=== PATIENT | male | born 1950 | race Caucasian/White ===

== ENCOUNTER 2017-05-12 12:13 | Emergency (ER) | payer MEDICARE, OTHER ==
[~2017-05-12] VITALS: Ht 175.3 cm; Wt 90.7 kg
[~2017-05-12 12:13] MED LIST: ASCO500 PO; BENZ2 PO; HALO5 PO; Seroquel100 MG PO
[2018-05-17] MEDS ORDERED: ARIP10 PO (09:14)
== END 2017-05-12 13:18 | disposition home or self-care (01) ==
LOC: ER 12:13
DX: S63.501A Unspecified sprain of right wrist, initial encounter (principal); Y04.0XXA Assault by unarmed brawl or fight, initial encounter; Z87.891 Personal history of nicotine dependence
CPT/HCPCS: 29125; 73110; 99283

== ENCOUNTER 2017-06-12 10:54 | Emergency (ER) | payer MEDICARE ==
[~2017-06-12] VITALS: Ht 175.3 cm; Wt 90.7 kg
[2017-06-12] MEDS ORDERED: Haldol 5 mg Tab5 MG PO ×2 (11:02→11:30)
[2018-05-17] MEDS ORDERED: ARIP10 PO (09:14)
== END 2017-06-12 11:40 | disposition home or self-care (01) ==
LOC: ER 10:54
DX: S00.03XA Contusion of scalp, initial encounter (principal); S00.81XA Abrasion of other part of head, initial encounter; S80.211A Abrasion, right knee, initial encounter; S60.511A Abrasion of right hand, initial encounter; W01.10XA Fall on same level from slipping, tripping and stumbling with subsequent striking against unspecified object, initial encounter; Z79.899 Other long term (current) drug therapy; Z87.891 Personal history of nicotine dependence
CPT/HCPCS: 99283

== ENCOUNTER 2018-06-16 11:06 | Emergency (ER) | payer MEDICARE, OTHER ==
[~2018-06-16] VITALS: Ht 175.3 cm; Wt 79.4 kg
[~2018-06-16 11:06] MED LIST changes: +ARIP10 PO; +Haldol 5 mg Tab5 MG PO
== END 2018-06-16 11:52 | disposition home or self-care (01) ==
LOC: ER 11:06
DX: S51.811D Laceration without foreign body of right forearm, subsequent encounter (principal); S51.812D Laceration without foreign body of left forearm, subsequent encounter; Z79.899 Other long term (current) drug therapy; F31.9 Bipolar disorder, unspecified; F43.10 Post-traumatic stress disorder, unspecified; Z87.891 Personal history of nicotine dependence

== ENCOUNTER → 2022-01-09 | Outpatient (CLI) | payer OTHER ==
[2022-01-09 17:14] LABS: BASOPHILS ABSOLUTE AUTO 0.05 K/mm3 (0.00-0.23); BASOPHILS PERCENT AUTO 1 % (0-2); EOSINOPHILS ABSOLUTE AUTO 0.13 K/mm3 (0.00-0.68); EOSINOPHILS PERCENT AUTO 2 % (0-6); Hematocrit 43.6 % (37.0-53.0); Hemoglobin 15.4 g/dL (13.5-17.5); IMMATURE GRAN ABSOLUTE AUTO 0.05 K/mm3 (0.00-0.10); IMMATURE GRAN PERCENT AUTO 1 % (0-1); LYMPHOCYTES ABSOLUTE AUTO 1.36 K/mm3 (0.84-5.20); LYMPHOCYTES PERCENT AUTO 24 % (21-46); MONOCYTES ABSOLUTE AUTO 0.58 K/mm3 (0.16-1.47); MONOCYTES PERCENT AUTO 10 % (4-13); Mean Corpuscular HGB Conc 35.3 g/dL (31.5-36.5); Mean Corpuscular Volume 88 fL (80-100); NEUTROPHILS PERCENT AUTO 61 % (41-73); Platelet Count 252 K/mm3 (150-400); RDW Coefficient Variation 12.8 % (11.7-14.2); Red Blood Cell Count 4.97 M/mm3 (4.30-5.90); White Blood Cell Count 5.57 K/mm3 (4.00-11.30)
[2022-01-09 18:32] LABS: Alanine Aminotransfer (ALT/SGP 24 U/L (12-78); Albumin, Blood 3.7 g/dL (3.4-5.0); Albumin/Globulin Ratio 0.9 (0.8-1.8); Alk Phos 76 U/L (50-136); Anion Gap 4 mmol/L (6-16); Aspartate Aminotrans (AST/SGOT 14 U/L (12-37); Bilirubin, Total 0.6 mg/dL (0.1-1.0); Blood Urea Nitrogen 11 mg/dL (8-24); Bun/Creatinine Ratio 13.1 (12.0-20.0); CHOL/HDL RATIO 5.2; CO2, Blood 25 mmol/L (21-32); Calcium, Blood 9.3 mg/dL (8.5-10.1); Chloride, Blood 108 mmol/L (98-108); Cholesterol 227 mg/dL (50-200); Creatinine, Blood 0.84 mg/dL (0.60-1.20); Globulin, Blood 3.9 g/dL (2.2-4.0); Glomerular Filtration Rate 94 (60-); Glucose, Blood 106 mg/dL (70-99); HDL Cholesterol 44 mg/dL (>39); LDL/HDL RATIO 3.5; Low Density Lipoprotein Chol 155 mg/dL (0-110); Potassium, Blood 4.3 mmol/L (3.5-5.5); Prostate Specific Antigen 0.854 ng/mL (0.000-4.000); Sodium, Blood 137 mmol/L (136-145); Total Protein, Blood 7.6 g/dL (6.4-8.2); Triglycerides 138 mg/dL (30-160); Very Low Density Lipoprot Chol 27 mg/dL (6-32)
== END | disposition home or self-care (01) ==
LOC: LAB SHORT 11:20 → LAB 11:20
PROVIDERS: Family Medicine
DX: Z00.00 Encounter for general adult medical examination without abnormal findings (principal); Z12.5 Encounter for screening for malignant neoplasm of prostate; E03.9 Hypothyroidism, unspecified; E66.9 Obesity, unspecified; R73.9 Hyperglycemia, unspecified
CPT/HCPCS: 80053; 80061; 83036; 84443; 85025; G0103

== ENCOUNTER 2024-02-02 13:42 | Emergency (ER) | payer OTHER ==
[~2024-02-02] VITALS: Ht 182.9 cm; Wt 99.8 kg
[2024-02-02] MEDS ORDERED: ARIPiprazole 10 MG Tab PO ONE (14:50)
[2024-02-02 15:11] LABS: BASOPHILS ABSOLUTE AUTO 0.05 K/mm3 (0.00-0.23); BASOPHILS PERCENT AUTO 1 % (0-2); EOSINOPHILS ABSOLUTE AUTO 0.06 K/mm3 (0.00-0.68); EOSINOPHILS PERCENT AUTO 1 % (0-6); Hematocrit 43.7 % (37.0-53.0); Hemoglobin 14.8 g/dL (13.5-17.5); IMMATURE GRAN ABSOLUTE AUTO 0.05 K/mm3 (0.00-0.10); IMMATURE GRAN PERCENT AUTO 1 % (0-1); LYMPHOCYTES ABSOLUTE AUTO 1.29 K/mm3 (0.84-5.20); LYMPHOCYTES PERCENT AUTO 17 % (21-46); MONOCYTES ABSOLUTE AUTO 0.91 K/mm3 (0.16-1.47); MONOCYTES PERCENT AUTO 12 % (4-13); Mean Corpuscular HGB 31.2 pg (26.0-34.0); Mean Corpuscular HGB Conc 33.9 g/dL (31.5-36.5); Mean Corpuscular Volume 92 fL (80-100); Mean Platelet Volume 9.8 fL (9.1-12.4); NEUTROPHILS ABSOLUTE AUTO 5.41 K/mm3 (1.96-9.15); NEUTROPHILS PERCENT AUTO 70 % (41-73); Platelet Count 272 K/mm3 (150-400); RDW Coefficient Variation 12.7 % (11.7-14.2); RDW Standard Deviation 42.5 fL (35.1-46.3); Red Blood Cell Count 4.75 M/mm3 (4.30-5.90); White Blood Cell Count 7.77 K/mm3 (4.00-11.30)
[2024-02-02 15:28] LABS: Albumin, Blood 3.8 g/dL (3.4-5.0); Bilirubin, Total 1.5 mg/dL (0.1-1.0); Bun/Creatinine Ratio 29.2 (12.0-20.0); Calcium, Blood 9.3 mg/dL (8.5-10.1); Creatinine, Blood 0.72 mg/dL (0.60-1.20); Potassium, Blood 3.3 mmol/L (3.5-5.5); Total Protein, Blood 7.8 g/dL (6.4-8.2)
[2024-02-02 16:00] VITALS: BP 124/78
== END 2024-02-02 17:12 | disposition home or self-care (01) ==
LOC: ER 13:42
PROVIDERS: Emergency Medicine
DX: R41.0 Disorientation, unspecified (principal); X02.0XXA Exposure to flames in controlled fire in building or structure, initial encounter; S00.12XA Contusion of left eyelid and periocular area, initial encounter; W19.XXXA Unspecified fall, initial encounter; F31.9 Bipolar disorder, unspecified; Z79.899 Other long term (current) drug therapy; Z87.891 Personal history of nicotine dependence
CPT/HCPCS: 70450; 80053; 85025; 99285-25; A9270

== ENCOUNTER 2024-02-05 15:55 | Emergency (ER) | payer OTHER ==
[~2024-02-05] VITALS: Ht 172.7 cm; Wt 113.4 kg
[2024-02-05 16:03] VITALS: BP 146/82
== END 2024-02-05 18:01 | disposition home or self-care (01) ==
LOC: ER 15:55
DX: T59.811A Toxic effect of smoke, accidental (unintentional), initial encounter (principal); R05.9 Cough, unspecified; Z87.891 Personal history of nicotine dependence; F43.10 Post-traumatic stress disorder, unspecified
CPT/HCPCS: 71045; 93005; 93010; 99285-25

== ENCOUNTER 2024-02-08 09:08 | Emergency (ER) | payer OTHER ==
[~2024-02-08] VITALS: Ht 177.8 cm; Wt 81.7 kg
[2024-02-08 09:47] LABS: BASOPHILS ABSOLUTE AUTO 0.01 K/mm3 (0.00-0.23); BASOPHILS PERCENT AUTO 0 % (0-2); EOSINOPHILS ABSOLUTE AUTO 0.22 K/mm3 (0.00-0.68); EOSINOPHILS PERCENT AUTO 6 % (0-6); Hemoglobin 15.2 g/dL (13.5-17.5); IMMATURE GRAN ABSOLUTE AUTO 0.01 K/mm3 (0.00-0.10); IMMATURE GRAN PERCENT AUTO 0 % (0-1); LYMPHOCYTES ABSOLUTE AUTO 0.93 K/mm3 (0.84-5.20); LYMPHOCYTES PERCENT AUTO 27 % (21-46); MONOCYTES ABSOLUTE AUTO 0.49 K/mm3 (0.16-1.47); MONOCYTES PERCENT AUTO 14 % (4-13); Mean Corpuscular HGB 30.8 pg (26.0-34.0); Mean Corpuscular HGB Conc 34.5 g/dL (31.5-36.5); Mean Corpuscular Volume 89 fL (80-100); Mean Platelet Volume 9.5 fL (9.1-12.4); NEUTROPHILS ABSOLUTE AUTO 1.79 K/mm3 (1.96-9.15); NEUTROPHILS PERCENT AUTO 52 % (41-73); Platelet Count 237 K/mm3 (150-400); RDW Coefficient Variation 12.6 % (11.7-14.2); RDW Standard Deviation 41.1 fL (35.1-46.3); Red Blood Cell Count 4.93 M/mm3 (4.30-5.90); White Blood Cell Count 3.45 K/mm3 (4.00-11.30)
[2024-02-08 09:49] LABS: Source, Urine Clean Catch
[2024-02-08 09:52] LABS: Appearance, Urine Clear (Clear); Bilirubin, Urine Neg (Neg); Blood, Urine Neg (Neg); Color, Urine Yellow (P-Yellow); Glucose Qualitative, Urine Neg (Neg); Ketones, Urine 2+ (Neg); Leukocyte Esterase, Urine Neg (Neg); Nitrite, Urine Neg (Neg); Protein, Urine 2+ (Neg); Specific Gravity, Urine 1.025 (1.003-1.022); Urobilinogen, Urine 2+ (Normal)
[2024-02-08 09:59] LABS: Red Blood Cells, Urine 0-2 /hpf (0-2); White Blood Cells, Urine 0-2 /hpf (0-5)
[2024-02-08 10:00] LABS: Bacteria Few /hpf; Mucus Heavy (0-Heavy); Squamous Epithelial Cells Rare /hpf (Few)
[2024-02-08 10:12] LABS: Alanine Aminotransfer (ALT/SGP 51 U/L (12-78); Albumin, Blood 3.4 g/dL (3.4-5.0); Albumin/Globulin Ratio 0.8 (0.8-1.8); Alk Phos 66 U/L (50-136); Anion Gap 12 mmol/L (3-11); Aspartate Aminotrans (AST/SGOT 34 U/L (12-37); Bilirubin, Total 0.7 mg/dL (0.1-1.0); Blood Urea Nitrogen 20 mg/dL (8-24); Bun/Creatinine Ratio 21.4 (12.0-20.0); CO2, Blood 25 mmol/L (21-32); Calcium, Blood 9.1 mg/dL (8.5-10.1); Chloride, Blood 109 mmol/L (98-108); Creatinine, Blood 0.94 mg/dL (0.60-1.20); Ethanol (Alcohol), Blood, Med <3 mg/dL; Globulin, Blood 4.1 g/dL (2.2-4.0); Glomerular Filtration Rate 86 (60-); Glucose, Blood 105 mg/dL (70-99); Potassium, Blood 3.4 mmol/L (3.5-5.5); Sodium, Blood 143 mmol/L (136-145); Total Protein, Blood 7.5 g/dL (6.4-8.2)
[2024-02-08 10:12] LABS: U Amphetamine Screen Not Detected; U Barbituate Screen Not Detected; U Benzodiazapine Screen Not Detected; U Buprenorphine Screen Not Detected; U Cannabinoids Screen Not Detected; U Cocaine Screen Not Detected; U Methadone Screen Not Detected; U Methamphetamine Screen Not Detected; U Opiates Screen Not Detected; U Oxycodone Screen Not Detected; U Phencyclidine Screen Not Detected
[2024-02-08] MEDS ORDERED: OLANZapine 10 MG Tab PO ONE (10:15)
[2024-02-08 10:32] VITALS: BP 127/79
== END 2024-02-08 10:51 | disposition home or self-care (01) ==
LOC: ER 09:08
PROVIDERS: Emergency Medicine
DX: R46.89 Other symptoms and signs involving appearance and behavior (principal); Z86.59 Personal history of other mental and behavioral disorders; Z87.891 Personal history of nicotine dependence; Z79.899 Other long term (current) drug therapy
CPT/HCPCS: 80053; 80320; 81001; 85025; 99285; A9270

== ENCOUNTER 2024-02-08 11:46 | Emergency (ER) | payer OTHER ==
[~2024-02-08] VITALS: Ht 182.9 cm; Wt 81.7 kg
[2024-02-08 11:55] VITALS: BP 121/73
== END 2024-02-08 11:56 | disposition home or self-care (01) ==
LOC: ER 11:46
DX: Z02.89 Encounter for other administrative examinations (principal); Z79.899 Other long term (current) drug therapy; Z87.891 Personal history of nicotine dependence
CPT/HCPCS: 99282

== ENCOUNTER 2025-04-17 18:46 | Emergency (ER) | payer OTHER ==
[~2025-04-17] VITALS: Ht 188 cm; Wt 72.6 kg
[2025-04-17 18:53] VITALS: BP 131/85
[2025-04-17] MEDS ORDERED: LORazepam 2 MG/ML 1ML Injection IV ONE (19:05)
[2025-04-17 19:09] LABS: BASOPHILS ABSOLUTE AUTO 0.02 K/mm3 (0.00-0.23); BASOPHILS PERCENT AUTO 0 % (0-2); EOSINOPHILS ABSOLUTE AUTO 0.12 K/mm3 (0.00-0.68); EOSINOPHILS PERCENT AUTO 2 % (0-6); Hematocrit 37.4 % (37.0-53.0); Hemoglobin 12.9 g/dL (13.5-17.5); IMMATURE GRAN ABSOLUTE AUTO 0.03 K/mm3 (0.00-0.10); IMMATURE GRAN PERCENT AUTO 0 % (0-1); LYMPHOCYTES ABSOLUTE AUTO 2.33 K/mm3 (0.84-5.20); LYMPHOCYTES PERCENT AUTO 29 % (21-46); MONOCYTES ABSOLUTE AUTO 0.59 K/mm3 (0.16-1.47); MONOCYTES PERCENT AUTO 7 % (4-13); Mean Corpuscular HGB Conc 34.5 g/dL (31.5-36.5); Mean Corpuscular Volume 92 fL (80-100); NEUTROPHILS ABSOLUTE AUTO 4.91 K/mm3 (1.96-9.15); NEUTROPHILS PERCENT AUTO 61 % (41-73); NRBC ABSOLUTE 0.00 K/mm3 (0.00-0.02); NRBC Auto 0.0 /100 WBC (0.0-0.2); Platelet Count 237 K/mm3 (150-400); RDW Coefficient Variation 13.2 % (11.7-14.2); RDW Standard Deviation 44.4 fL (35.1-46.3)
[2025-04-17] MEDS ORDERED: CeFAZolin Sodium 2,000 MG in NS 100 ML IV ONE (19:10)
[2025-04-17] MEDS ORDERED: LORazepam 2 MG/ML 1ML Injection ONE (19:19)
[2025-04-17 19:24] LABS: Prothrombin Time Results 11.4 Sec (9.7-11.5)
[2025-04-17 19:25] LABS: pH Blood Venous 7.43 (7.34-7.37)
[2025-04-17 19:35] LABS: Acetaminophen, Random <2.0 ug/mL (10.0-30.0); Alanine Aminotransfer (ALT/SGP 20 U/L (12-78); Albumin, Blood 3.6 g/dL (3.4-5.0); Albumin/Globulin Ratio 1.1 (0.8-1.8); Anion Gap 6 mmol/L (3-11); Aspartate Aminotrans (AST/SGOT 14 U/L (12-37); Bilirubin, Total 0.6 mg/dL (0.1-1.0); Blood Urea Nitrogen 11 mg/dL (8-24); CO2, Blood 29 mmol/L (21-32); Calcium, Blood 8.8 mg/dL (8.5-10.1); Chloride, Blood 103 mmol/L (98-108); Creatinine, Blood 0.57 mg/dL (0.60-1.20); Ethanol (Alcohol), Blood, Med <3 mg/dL; Globulin, Blood 3.2 g/dL (2.2-4.0); Glucose, Blood 129 mg/dL (70-99); Magnesium, Blood 1.9 mg/dL (1.6-2.4); Potassium, Blood 3.4 mmol/L (3.5-5.5); Salicylate 1.9 mg/dL (2.8-20.0); Sodium, Blood 135 mmol/L (136-145); Total Protein, Blood 6.8 g/dL (6.4-8.2)
[2025-04-17] MEDS ORDERED: levETIRAcetam 2,000 MG in NS 100 ML IV ONE (20:20)
== END 2025-04-17 21:02 | disposition short-term general hospital (02) ==
LOC: ER 18:46
PROVIDERS: Student in an Organized Health Care Education/Training Program
DX: S02.0XXB Fracture of vault of skull, initial encounter for open fracture (principal); S02.19XB Other fracture of base of skull, initial encounter for open fracture; S06.6XAA Traumatic subarachnoid hemorrhage with loss of consciousness status unknown, initial encounter; S06.5XAA Traumatic subdural hemorrhage with loss of consciousness status unknown, initial encounter; S52.251B Displaced comminuted fracture of shaft of ulna, right arm, initial encounter for open fracture type I or II; G93.40 Encephalopathy, unspecified; G89.11 Acute pain due to trauma; Z87.891 Personal history of nicotine dependence; Z79.899 Other long term (current) drug therapy; X58.XXXA Exposure to other specified factors, initial encounter
CPT/HCPCS: 12034; 25605; 70450; 70486; 71045; 72125; 73090; 80053; 80320; 82803; 83735; 85025; 85610; 85730; 86850; 86900; 86901; 90471; 90715; 93005; 93010; 96365-59; 96375-59; 99285-25; G0480; J0690; J1953; J2060

== ENCOUNTER 2025-04-27 09:25 | Emergency (ER) | payer OTHER ==
[~2025-04-27] VITALS: Ht 175.3 cm; Wt 70.3 kg
[2025-04-27 10:38] LABS: BASOPHILS ABSOLUTE AUTO 0.03 K/mm3 (0.00-0.23); BASOPHILS PERCENT AUTO 0 % (0-2); EOSINOPHILS ABSOLUTE AUTO 0.09 K/mm3 (0.00-0.68); EOSINOPHILS PERCENT AUTO 1 % (0-6); Hematocrit 24.9 % (37.0-53.0); Hemoglobin 8.5 g/dL (13.5-17.5); IMMATURE GRAN ABSOLUTE AUTO 0.12 K/mm3 (0.00-0.10); IMMATURE GRAN PERCENT AUTO 1 % (0-1); LYMPHOCYTES ABSOLUTE AUTO 1.27 K/mm3 (0.84-5.20); LYMPHOCYTES PERCENT AUTO 15 % (21-46); MONOCYTES ABSOLUTE AUTO 0.61 K/mm3 (0.16-1.47); MONOCYTES PERCENT AUTO 7 % (4-13); Mean Corpuscular HGB Conc 34.1 g/dL (31.5-36.5); Mean Corpuscular Volume 94 fL (80-100); NEUTROPHILS ABSOLUTE AUTO 6.53 K/mm3 (1.96-9.15); NEUTROPHILS PERCENT AUTO 76 % (41-73); NRBC ABSOLUTE 0.00 K/mm3 (0.00-0.02); NRBC Auto 0.0 /100 WBC (0.0-0.2); Platelet Count 263 K/mm3 (150-400); RDW Coefficient Variation 14.0 % (11.7-14.2); RDW Standard Deviation 47.4 fL (35.1-46.3)
[2025-04-27 11:03] LABS: Alanine Aminotransfer (ALT/SGP 48.0 U/L (12-78); Albumin, Blood 2.9 g/dL (3.4-5.0); Albumin/Globulin Ratio 1.0 (0.8-1.8); Anion Gap 5.0 mmol/L (3-11); Aspartate Aminotrans (AST/SGOT 17.0 U/L (12-37); Bilirubin, Total 0.4 mg/dL (0.1-1.0); Blood Urea Nitrogen 22.0 mg/dL (8-24); CO2, Blood 31.0 mmol/L (21-32); Calcium, Blood 8.4 mg/dL (8.5-10.1); Chloride, Blood 104.0 mmol/L (98-108); Creatinine, Blood 0.56 mg/dL (0.60-1.20); Globulin, Blood 2.9 g/dL (2.2-4.0); Glucose, Blood 106.0 mg/dL (70-99); Potassium, Blood 4.0 mmol/L (3.5-5.5); Sodium, Blood 136.0 mmol/L (136-145); Total Protein, Blood 5.8 g/dL (6.4-8.2)
[2025-04-27 13:38] VITALS: BP 107/62
[2025-05-01] MEDS ORDERED: OXYC10TA19 PO (02:09)
== END 2025-04-27 13:51 | disposition home or self-care (01) ==
LOC: ER 09:25
PROVIDERS: Emergency Medicine
DX: K62.5 Hemorrhage of anus and rectum (principal); D64.9 Anemia, unspecified; S02.91XB Unspecified fracture of skull, initial encounter for open fracture; S52.201B Unspecified fracture of shaft of right ulna, initial encounter for open fracture type I or II; Z87.891 Personal history of nicotine dependence; X58.XXXA Exposure to other specified factors, initial encounter
CPT/HCPCS: 80053; 85025; 86850; 86900; 86901; 99285-25

== ENCOUNTER 2025-04-29 09:50 | Inpatient (IN) | payer OTHER ==
[~2025-04-29] VITALS: Ht 175.3 cm; Wt 65.3 kg
[2025-04-29] VITALS (9 sets, daily range): BP systolic 94–108; BP diastolic 55–64
[2025-04-29 10:49] LABS: BASOPHILS ABSOLUTE AUTO 0.03 K/mm3 (0.00-0.23); BASOPHILS PERCENT AUTO 0 % (0-2); EOSINOPHILS ABSOLUTE AUTO 0.07 K/mm3 (0.00-0.68); EOSINOPHILS PERCENT AUTO 1 % (0-6); IMMATURE GRAN ABSOLUTE AUTO 0.21 K/mm3 (0.00-0.10); IMMATURE GRAN PERCENT AUTO 2 % (0-1); LYMPHOCYTES ABSOLUTE AUTO 3.20 K/mm3 (0.84-5.20); LYMPHOCYTES PERCENT AUTO 26 % (21-46); MONOCYTES ABSOLUTE AUTO 0.81 K/mm3 (0.16-1.47); MONOCYTES PERCENT AUTO 7 % (4-13); Mean Corpuscular HGB Conc 33.1 g/dL (31.5-36.5); Mean Corpuscular Volume 95 fL (80-100); NEUTROPHILS ABSOLUTE AUTO 8.17 K/mm3 (1.96-9.15); NEUTROPHILS PERCENT AUTO 65 % (41-73); NRBC ABSOLUTE 0.00 K/mm3 (0.00-0.02); NRBC Auto 0.0 /100 WBC (0.0-0.2); Platelet Count 266 K/mm3 (150-400); RDW Coefficient Variation 15.2 % (11.7-14.2); RDW Standard Deviation 51.6 fL (35.1-46.3)
[2025-04-29] MEDS ORDERED: Pantoprazole Sodium 40 MG Injection IV ONE (10:50)
[2025-04-29 10:52] LABS: Hematocrit 12.4 % (37.0-53.0); Hemoglobin 4.1 g/dL (13.5-17.5)
[2025-04-29 10:59] LABS: Prothrombin Time Results 10.9 Sec (9.7-11.5)
[2025-04-29 11:01] LABS: Magnesium, Blood 2.1 mg/dL (1.6-2.4)
[2025-04-29 11:02] LABS: Alanine Aminotransfer (ALT/SGP 31.0 U/L (12-78); Albumin, Blood 2.4 g/dL (3.4-5.0); Albumin/Globulin Ratio 1.0 (0.8-1.8); Anion Gap 9.0 mmol/L (3-11); Aspartate Aminotrans (AST/SGOT 14.0 U/L (12-37); Bilirubin, Total 0.3 mg/dL (0.1-1.0); Blood Urea Nitrogen 29.0 mg/dL (8-24); CO2, Blood 28.0 mmol/L (21-32); Calcium, Blood 8.0 mg/dL (8.5-10.1); Chloride, Blood 104.0 mmol/L (98-108); Creatinine, Blood 0.54 mg/dL (0.60-1.20); Globulin, Blood 2.5 g/dL (2.2-4.0); Glucose, Blood 104.0 mg/dL (70-99); Potassium, Blood 4.1 mmol/L (3.5-5.5); Sodium, Blood 137.0 mmol/L (136-145); Total Protein, Blood 4.9 g/dL (6.4-8.2)
[2025-04-29] MEDS ORDERED: FLU VACC TS2025(65UP)/MF59C/PF 45 MCG/0.5 ML SYRINGE IM SCH (11:20)
[2025-04-29] MEDS ORDERED: NS 1,000 ML IV ONE (12:13)
[2025-04-29] MEDS ORDERED: NS 500 ML IV SCH (14:55)
[2025-04-29] MEDS ORDERED: NS 500 ML IV ONE (15:00)
--- NOTE | 2025-04-29 16:00 | NUR ---
PT WAS RECEIVED FROM ED VIA STRETCHER. PT AWAKE, WITH ONGOING INFUSION OF PRBC. PT MOVED TO BED IN PCU 20 USING A SLIDING MAT. PT KEPT ON ASKING IF HE CAN DRINK WATER, PT WAS ON NPO. EDUCATED PT ON CURRENT DIET ORDERS. HOOKED PT WITH PORTABLE PRETZEL PACKER AND PULSE OXYMETER. NOTED SURGICAL WOUNDS AND SCAB WOUND (SEE PICTURES). STARTED ANOTHER BAG OF BLOOD AND MONITORED PT PER PROTOCOL.
[2025-04-29] MEDS ORDERED: Pantoprazole Sodium 40 MG Injection IV SCH (16:30)
--- NOTE | 2025-04-29 21:03 | NUR ---
ASSUMPTION OF CARE ASSUMED CARE OF PT AT APPROXIMATELY 1900. PT RESTING COMFORTABLY IN BED. BLOOD INFUSION COMPLETED AT APPROXIMATELY 2044. PT TOLERATED WELL. NO SIGNS OF ADVERSE REACTION. VSS. NO C/O CHEST PAIN OR PRESSURE. NO C/O SOB. PT AOX4, CALM AND COOPERATIVE WITH CARES. STRAIGHT CATH DONE DURING DAY SHIFT. WILL CONTINUE TO MONITOR. PT STATES HE DOES NOT FEEL FULL OR A NEED TO VOID AT THIS TIME. CALL LIGHT WITHIN REACH AND PT ABLE TO MAKE NEEDS KNOWN. PT IS A LITTLE FORGETFUL AT TIMES. CALL LIGHT WITHIN REACH AND PT ABLE TO CALL FOR ASSISTANCE.
[2025-04-29 22:59] LABS: Hematocrit 19.9 % (37.0-53.0); Hemoglobin 7.0 g/dL (13.5-17.5)
[2025-04-30] VITALS (15 sets, daily range): BP systolic 89–126; BP diastolic 50–72
[2025-04-30 03:22] LABS: BASOPHILS ABSOLUTE AUTO 0.05 K/mm3 (0.00-0.23); BASOPHILS PERCENT AUTO 1 % (0-2); EOSINOPHILS ABSOLUTE AUTO 0.07 K/mm3 (0.00-0.68); EOSINOPHILS PERCENT AUTO 1 % (0-6); Hematocrit 18.4 % (37.0-53.0); Hemoglobin 6.6 g/dL (13.5-17.5); IMMATURE GRAN ABSOLUTE AUTO 0.20 K/mm3 (0.00-0.10); IMMATURE GRAN PERCENT AUTO 2 % (0-1); LYMPHOCYTES ABSOLUTE AUTO 2.97 K/mm3 (0.84-5.20); LYMPHOCYTES PERCENT AUTO 27 % (21-46); MONOCYTES ABSOLUTE AUTO 1.02 K/mm3 (0.16-1.47); MONOCYTES PERCENT AUTO 9 % (4-13); Mean Corpuscular HGB Conc 35.9 g/dL (31.5-36.5); NEUTROPHILS ABSOLUTE AUTO 6.76 K/mm3 (1.96-9.15); NEUTROPHILS PERCENT AUTO 61 % (41-73); NRBC ABSOLUTE 0.00 K/mm3 (0.00-0.02); NRBC Auto 0.0 /100 WBC (0.0-0.2); Platelet Count 216 K/mm3 (150-400); RDW Coefficient Variation 15.5 % (11.7-14.2); RDW Standard Deviation 47.1 fL (35.1-46.3)
[2025-04-30 03:24] LABS: Mean Corpuscular Volume 87 fL (80-100)
[2025-04-30 03:45] LABS: Alanine Aminotransfer (ALT/SGP 29.0 U/L (12-78); Albumin, Blood 2.2 g/dL (3.4-5.0); Albumin/Globulin Ratio 1.0 (0.8-1.8); Anion Gap 8.0 mmol/L (3-11); Aspartate Aminotrans (AST/SGOT 13.0 U/L (12-37); Bilirubin, Total 0.5 mg/dL (0.1-1.0); Blood Urea Nitrogen 23.0 mg/dL (8-24); CO2, Blood 28.0 mmol/L (21-32); Calcium, Blood 7.7 mg/dL (8.5-10.1); Chloride, Blood 103.0 mmol/L (98-108); Creatinine, Blood 0.56 mg/dL (0.60-1.20); Globulin, Blood 2.3 g/dL (2.2-4.0); Glucose, Blood 79.0 mg/dL (70-99); Potassium, Blood 3.7 mmol/L (3.5-5.5); Sodium, Blood 135.0 mmol/L (136-145); Total Protein, Blood 4.5 g/dL (6.4-8.2)
--- NOTE | 2025-04-30 06:25 | NUR ---
SHIFT SUMMARY BLOOD TRANSFUSION COMPLETED AT APPROXIMATELY 2044. HGB RE-DRAW 7.0, MD YOU AWARE. MORNING HGB 6.6, MD YOU NOTIFIED. ORDER PLACED FOR 1 UNIT PRBC. PT WITH INCREASED CONFUSION. PT RIPPED OFF SPO2 SENSORS AND TELE MULTIPLE TIMES D/T INABILITY TO REMEMBER WHAT IT IS FOR AND WHY IT IS ON HIM. PT REMOVED IV JUST BEFORE INITIATING BLOOD TRANSFUSION. 2 NEW IV'S ESTABLISHED. BPS SOFT OVERNIGHT. PT CALM AND COOPERATIVE WITH CARES. BLADDER SCAN DONE 548ML PRESENT. PT VOIDED 450ML. NO C/O CHEST PAIN OR PRESSURE. NO C/O SOB. NO C/O ABD PAIN OR DISCOMFORT.
[2025-04-30 08:53] LABS: Ferritin, Serum 157.0 ng/mL (26-388); Total Iron Binding Capacity 229.0 ug/dL (250-450)
[2025-04-30] MEDS ORDERED: Iron Dextran 50 MG / ML 2ML Vial IV ONE (13:15)
[2025-04-30] MEDS ORDERED: Iron Dextran 975 MG in NS 250 ML IV ONE (14:30)
[2025-04-30 14:32] LABS: Hematocrit 24.4 % (37.0-53.0); Hemoglobin 8.7 g/dL (13.5-17.5)
--- NOTE | 2025-04-30 15:37 | NUR ---
UPDATE SBPs <100, MAP >65, PATIENT DENIES CHEST PAIN, DIZZINESS, OR NAUSEA. DR BARBER CONTACTED REGARDING CHANGE IN VITAL SIGNS. NEW ORDERS RECEIVED.
[2025-04-30] MEDS ORDERED: NS 250 ML IV PRN (16:50)
--- NOTE | 2025-04-30 16:50 | NUR ---
SHIFT SUMMARY PATIENT IS ALERT AND ORIENTED, ABLE TO FOLLOW COMMANDS AND MAKE NEEDS KNOWN. PATIENT IS CONFUSED REGARDING SHORT TERM EVENTS, FREQUENTLY REPEATING QUESTIONS. TELE IN PLACE, SINUS RHYTHM 70'S, PATIENT DENIES CHEST PAIN OR PRESSURE, SOFT BP'S THIS SHIFT, MAP >65, PROVIDER NOTIFIED, NEW ORDERS RECEIVED. ABDOMEN IS SOFT AND NONTENDER, RED BLOOD CLOTS NOTED IN BOWEL MOVEMENT. PATIENT RECEIVED 2 UNITS OF PRBCs THIS SHIFT. PATIENT EDUCATED ON COLONOSCOPY TO LOCATE AND MANAGE GIB, PATIENT REFUSED PROCEDURE, STATING "I'M NOT BLEEDING. IT'S NOT FROM MY COLON". PATIENT EDUCATED ON GIB AND IMPORTANCE OF INTERVENTION. OT, ETHICS, AND PALLIATIVE CARE CONSULT PLACED. PATIENT PULLING AT LINES THIS SHIFT, PATIENT REMOVED 2 IVs, SITTER IN PLACE FOR PATIENT SAFETY. PATIENT IS UP IN BED, BED IN LOWEST POSITION, CALL LIGHT WITHIN REACH.
[2025-04-30 18:34] LABS: Hematocrit 22.8 % (37.0-53.0); Hemoglobin 8.2 g/dL (13.5-17.5)
[2025-04-30 22:18] LABS: Hematocrit 21.4 % (37.0-53.0); Hemoglobin 7.5 g/dL (13.5-17.5)
--- NOTE | 2025-04-30 23:02 | NUR ---
ASSUMPTION OF CARE ASSUMED CARE OF PT AT APPROXIMATELY 1900. PT RESTING COMFORTABLY IN BED. PT DENIES ABD PAIN OR DISCOMFORT AT THIS TIME. SITTER PRESTENT TO PREVENT PULLING AT LINES, CORDS, TELE. PT AOX2. SHORT TERM MEMORY LOSS. MONITORING HGB WITH ORDERS TO TRANSFUSE IF HGB <7.5. NO C/O CHEST PAIN OR PRESSURE. NO C/O SOB. PT ABLE TO MAKE NEEDS KNOWN. CALL LIGHT WITHIN REACH BUT PT FORGETS TO USE FOR NEEDS. BED IN LOWEST AND LOCKED POSITION.
[2025-05-01] VITALS (12 sets, daily range): BP systolic 89–123; BP diastolic 56–69
[2025-05-01] MEDS ORDERED: ACET325 PO (01:51)
[2025-05-01] MEDS ORDERED: BUTALB-ACETAMI1 EAC6 PO (01:53)
[2025-05-01] MEDS ORDERED: BISA10S PR (01:54)
[2025-05-01] MEDS ORDERED: FOLI1 PO (01:54)
[2025-05-01] MEDS ORDERED: GABA100 PO (01:56)
[2025-05-01] MEDS ORDERED: MAGNESIUM OXID500 MG PO (01:57)
[2025-05-01] MEDS ORDERED: LEVE500 PO (01:57)
[2025-05-01] MEDS ORDERED: MELA3 PO (02:05)
[2025-05-01] MEDS ORDERED: MULVITA PO (02:06)
[2025-05-01] MEDS ORDERED: ONDA4ODT MM (02:07)
[2025-05-01] MEDS ORDERED: OXYC10TA19 PO ×2 (02:09→02:10)
[2025-05-01 02:27] LABS: BASOPHILS ABSOLUTE AUTO 0.04 K/mm3 (0.00-0.23); BASOPHILS PERCENT AUTO 0 % (0-2); EOSINOPHILS ABSOLUTE AUTO 0.12 K/mm3 (0.00-0.68); EOSINOPHILS PERCENT AUTO 1 % (0-6); Hematocrit 21.4 % (37.0-53.0); Hemoglobin 7.5 g/dL (13.5-17.5); IMMATURE GRAN ABSOLUTE AUTO 0.18 K/mm3 (0.00-0.10); IMMATURE GRAN PERCENT AUTO 2 % (0-1); LYMPHOCYTES ABSOLUTE AUTO 1.98 K/mm3 (0.84-5.20); LYMPHOCYTES PERCENT AUTO 17 % (21-46); MONOCYTES ABSOLUTE AUTO 0.90 K/mm3 (0.16-1.47); MONOCYTES PERCENT AUTO 8 % (4-13); Mean Corpuscular HGB Conc 35.0 g/dL (31.5-36.5); Mean Corpuscular Volume 88 fL (80-100); NEUTROPHILS ABSOLUTE AUTO 8.38 K/mm3 (1.96-9.15); NEUTROPHILS PERCENT AUTO 72 % (41-73); NRBC ABSOLUTE 0.00 K/mm3 (0.00-0.02); NRBC Auto 0.0 /100 WBC (0.0-0.2); Platelet Count 221 K/mm3 (150-400); RDW Coefficient Variation 16.4 % (11.7-14.2); RDW Standard Deviation 50.7 fL (35.1-46.3)
[2025-05-01 02:56] LABS: Alanine Aminotransfer (ALT/SGP 26.0 U/L (12-78); Albumin, Blood 2.3 g/dL (3.4-5.0); Albumin/Globulin Ratio 0.9 (0.8-1.8); Anion Gap 8.0 mmol/L (3-11); Aspartate Aminotrans (AST/SGOT 13.0 U/L (12-37); Bilirubin, Total 0.3 mg/dL (0.1-1.0); Blood Urea Nitrogen 16.0 mg/dL (8-24); CO2, Blood 26.0 mmol/L (21-32); Calcium, Blood 7.6 mg/dL (8.5-10.1); Chloride, Blood 106.0 mmol/L (98-108); Creatinine, Blood 0.64 mg/dL (0.60-1.20); Globulin, Blood 2.5 g/dL (2.2-4.0); Glucose, Blood 120.0 mg/dL (70-99); Potassium, Blood 4.1 mmol/L (3.5-5.5); Sodium, Blood 136.0 mmol/L (136-145); Total Protein, Blood 4.8 g/dL (6.4-8.2)
--- NOTE | 2025-05-01 06:31 | NUR ---
SHIFT SUMMARY HGB HOLDING AT 7.5. PT HAD ONE SMALL BM THAT APPEARED TO BE BLOOD CLOTS. PT DENIES ABDOMINAL PAIN, TENDERNESS, OR DISCOMFORT THIS SHIFT. NO C/O CHEST PAIN OR PRESSURE. NO C/O SOB. BP'S CONTINUE TO BE SOFT, THOUGH IMPROVE WITH REPOSITIONING. CONTINUE TO MONITOR HGB, ORDERS TO TRANSFUSE IF HGB <7.5. PT FORGETFUL. ORIENTED TO SELF AND PLACE. CALL LIGHT WITHIN REACH AND PT ABLE TO CALL FOR ASSISTANCE WHEN NEEDED. BED IN LOWEST AND LOCKED POSITION. 2 PERSON ASSIST TO BSC D/T SOFT BP AND LOW HGB.
--- NOTE | 2025-05-01 10:16 | NUR ---
UPDATE SPOKE WITH PALLIATIVE CARE REGARDING PATIENT ABILITY TO CONSENT TO TREATMENT. PER PALLIATIVE CARE RN, DR BARBER TO PERFORM BASIC CAPACITY ASSESSMENT. THIS RN CONTACTED DR BARBER REGARDING BASIC CAPACITY ASSESSMENT, PROVIDER TO ASSESS.
[2025-05-01] MEDS ORDERED: Ondansetron 4 MG SoluTab MM PRN (11:00)
[2025-05-01 12:27] LABS: Hematocrit 20.6 % (37.0-53.0); Hemoglobin 7.1 g/dL (13.5-17.5)
--- NOTE | 2025-05-01 17:06 | NUR ---
SHIFT SUMMARY PATIENT IS ALERT AND ORIENTED, ABLE TO FOLLOW COMMANDS AND MAKE NEEDS KNOWN. PATIENT EXHIBITS DECREASED COMPREHENSION OF REASON FOR ADMISSION AND COURSE OF TREATMENT. COGNITIVE EVAL PERFORMED TODAY, SEE OT ASSESSMENT FOR FURTHER INFORMATION. TELE IN PLACE, SINUS RHYTHM 70'S-90'S, SOFT BPs THIS SHIFT, MAP >65, PATIENT DENIES CHEST PAIN OR PRESSURE. PATIENT DENIES N/V/D, LV RED STOOLS NOTED THIS SHIFT. PATIENT RECEIVED 1 UNIT OF PRBCs DUE TO DECREASED HEMOGLOBIN. PATIENT CALLS APPROPRIATELY, BUT OVERESTIMATES ABILITIES, PATIENT EDUCATED SLOW POSITION CHANGES AND AMBULATING SLOWLY THROUGHOUT SHIFT, UNDERSTANDING OF USE OF CALL LIGHT EVALUATED WITH SHOW-BACK METHOD. PATIENT IS UP IN BED, BED IN LOWEST POSITION, CALL LIGHT WITHIN REACH, BED ALARM SET.
[2025-05-01 19:05] LABS: Hematocrit 24.2 % (37.0-53.0); Hemoglobin 8.5 g/dL (13.5-17.5)
[2025-05-01 22:52] LABS: Hematocrit 23.1 % (37.0-53.0); Hemoglobin 8.0 g/dL (13.5-17.5)
[2025-05-02] VITALS (7 sets, daily range): BP systolic 101–115; BP diastolic 58–72
[2025-05-02 05:11] LABS: BASOPHILS ABSOLUTE AUTO 0.05 K/mm3 (0.00-0.23); BASOPHILS PERCENT AUTO 1 % (0-2); EOSINOPHILS ABSOLUTE AUTO 0.20 K/mm3 (0.00-0.68); EOSINOPHILS PERCENT AUTO 2 % (0-6); Hematocrit 23.0 % (37.0-53.0); Hemoglobin 7.9 g/dL (13.5-17.5); IMMATURE GRAN ABSOLUTE AUTO 0.19 K/mm3 (0.00-0.10); IMMATURE GRAN PERCENT AUTO 2 % (0-1); LYMPHOCYTES ABSOLUTE AUTO 2.07 K/mm3 (0.84-5.20); LYMPHOCYTES PERCENT AUTO 22 % (21-46); MONOCYTES ABSOLUTE AUTO 0.91 K/mm3 (0.16-1.47); MONOCYTES PERCENT AUTO 10 % (4-13); Mean Corpuscular HGB Conc 34.3 g/dL (31.5-36.5); Mean Corpuscular Volume 90 fL (80-100); NEUTROPHILS ABSOLUTE AUTO 5.87 K/mm3 (1.96-9.15); NEUTROPHILS PERCENT AUTO 63 % (41-73); NRBC ABSOLUTE 0.00 K/mm3 (0.00-0.02); NRBC Auto 0.0 /100 WBC (0.0-0.2); Platelet Count 246 K/mm3 (150-400); RDW Coefficient Variation 18.1 % (11.7-14.2); RDW Standard Deviation 53.4 fL (35.1-46.3)
[2025-05-02 05:31] LABS: Anion Gap 7.0 mmol/L (3-11); Blood Urea Nitrogen 11.0 mg/dL (8-24); CO2, Blood 28.0 mmol/L (21-32); Calcium, Blood 8.1 mg/dL (8.5-10.1); Chloride, Blood 107.0 mmol/L (98-108); Creatinine, Blood 0.62 mg/dL (0.60-1.20); Glucose, Blood 97.0 mg/dL (70-99); Potassium, Blood 3.7 mmol/L (3.5-5.5); Sodium, Blood 138.0 mmol/L (136-145)
--- NOTE | 2025-05-02 06:25 | NUR ---
SHIFT SUMMARY PT MORE IMPULSIVE THIS SHIFT. BED ALARM ON. PT STEADY ON HIS FEET BUT NEEDS SBA D/T LOW HGB LEVELS. ORIENTATION IMPROVING, PT AOX3-4 THIS SHIFT. CONTINUES TO REFUSE COLONOSCOPY/ENDOSCOPY. PT PLEASANT AND COOPERATIVE WITH CARES. PT REPORTS POOR SLEEP D/T "BAD DREAMS". ADMINISTERED MEDICATION PER EMAR. NO C/O CHEST PAIN OR PRESSURE. NO C/O SOB. CALL LIGHT WITHIN REACH, PT CALLS APPROPRIATELY FOR ASSISTANCE WHEN NEEDED. AM HGB 7.9, CONTINUE TO MONITOR.
[2025-05-02] MEDS ORDERED: Multivitamins 1 Tab PO SCH (09:00)
--- NOTE | 2025-05-02 13:48 | NUR ---
Ethics consultation services requested. Concerns expressed regarding the decisional capacity of the principal, his fragile though pre-emergent clinical situation, and his sub-acute trajectory without a fiduciary assignment. The elements of capacity have been audited and the medical consensus appears to be that the principal does not comprehend clinically relevant information, does not fully appreciate the consequences of the available options, cannot manipulate medical information rationally, and communicates his choices in a less than normal or coherent fashion. Based on these findings / reports, I am recommending that we proceed with an application for emergency guardianship. The Care Cpordination Office is aware and will be facilitating the petition. If in the interim the principal requires medically necessary treatment, please re-establish communication with the ethicist and request further follow up. We do have statutory recourse in instances of this nature that allow us to sufficiently protect those with compromised mentation who are unbefriended.
[2025-05-02 14:21] LABS: Hematocrit 24.1 % (37.0-53.0); Hemoglobin 8.4 g/dL (13.5-17.5)
--- NOTE | 2025-05-02 18:34 | NUR ---
SHIFT SUMMARY PATIENT AOX3 T/O SHIFT. SOME CONFUSTION RELATED TO WHAT BROUGHT HIM TO THE HOSPITAL. MENTATION IMPROVED T/O SHIFT. SBP 100-110 T/O SHIFT. MAP >65. HR SR 80-90. O2 SATS >95% ON ROOM AIR. PATIENT IS SBA TO BATHROOM. SOME ELVIS AND SUTURES ON HEAD REMOVED BY PROVIDER. PLAN FOR MORE TO BE REMOVED TOMORROW. PRIOR REPORTS OF GI BLEED IN STOOLS. NO BM OR BLOOD OBSERVED TODAY. HGB HAS IMPROVED TODAY. PATIENT TRANSFERED TO RECLINER FOR LUNCH. ETHICS CONSULT TODAY. DENIES CHEST PAIN/PRESSURE/ SOB. PATIENT RESTING COMFORTABLY IN RECLINER WITH CALL LIGHT IN REACH.
[2025-05-03 03:27] VITALS: BP 109/75
[2025-05-03 04:49] LABS: BASOPHILS ABSOLUTE AUTO 0.04 K/mm3 (0.00-0.23); BASOPHILS PERCENT AUTO 1 % (0-2); EOSINOPHILS ABSOLUTE AUTO 0.25 K/mm3 (0.00-0.68); EOSINOPHILS PERCENT AUTO 3 % (0-6); Hematocrit 24.2 % (37.0-53.0); Hemoglobin 8.2 g/dL (13.5-17.5); IMMATURE GRAN ABSOLUTE AUTO 0.16 K/mm3 (0.00-0.10); IMMATURE GRAN PERCENT AUTO 2 % (0-1); LYMPHOCYTES ABSOLUTE AUTO 1.55 K/mm3 (0.84-5.20); LYMPHOCYTES PERCENT AUTO 18 % (21-46); MONOCYTES ABSOLUTE AUTO 0.81 K/mm3 (0.16-1.47); MONOCYTES PERCENT AUTO 9 % (4-13); Mean Corpuscular HGB Conc 33.9 g/dL (31.5-36.5); Mean Corpuscular Volume 93 fL (80-100); NEUTROPHILS ABSOLUTE AUTO 6.04 K/mm3 (1.96-9.15); NEUTROPHILS PERCENT AUTO 68 % (41-73); NRBC ABSOLUTE 0.00 K/mm3 (0.00-0.02); NRBC Auto 0.0 /100 WBC (0.0-0.2); Platelet Count 290 K/mm3 (150-400); RDW Coefficient Variation 18.3 % (11.7-14.2); RDW Standard Deviation 54.4 fL (35.1-46.3)
[2025-05-03 05:14] LABS: Anion Gap 9.0 mmol/L (3-11); Blood Urea Nitrogen 14.0 mg/dL (8-24); CO2, Blood 26.0 mmol/L (21-32); Calcium, Blood 8.1 mg/dL (8.5-10.1); Chloride, Blood 103.0 mmol/L (98-108); Creatinine, Blood 0.54 mg/dL (0.60-1.20); Glucose, Blood 101.0 mg/dL (70-99); Potassium, Blood 3.9 mmol/L (3.5-5.5); Sodium, Blood 134.0 mmol/L (136-145)
--- NOTE | 2025-05-03 06:20 | NUR ---
NO ACUTE EVENTS OVERNIGHT. PT COMPLAINED OF LOWER BACK PAIN AND A HEADACHE THROUGHOUT THE NIGHT. PT MEDICATED WITH PRN PAIN MEDS ORDERED (SEE CHART). CHAIR ALARM AND BED ALARM ON D/T PT BEING IMPULSIVE. SBA NEEDED TO THE BATHROOM. PT PULLED IV OUT OF UPPER LEFT ARM. THIS NURSE STARTED AN IV IN PT'S LEFT AC. PT TOLERATED WELL. BED ALARM ON. BED LOCKED IN LOWEST POSITION. CALL LIGHT WITHIN REACH.
[2025-05-03 08:53] VITALS: BP 98/63
[2025-05-03 13:19] VITALS: BP 112/79
--- NOTE | 2025-05-03 13:26 | NUR ---
SHIFT SUMMARY/TRANSFER NOTE PATIENT AX3-4 T/O SHIFT. SBP 98-110'S MAP >65. PROVIDER AWARE. HR SR 70-80'S. DENIES SOB/CHEST PAIN/PRESSURE. PATIENT IS SBA TO BATHROOM. EDCATED PATIENT ON CARE PLAN AND TREATMENTS RECIEVED. 02 SATS >95% ON RA. PCU STATS CHANGED TO MED STATUS WITH TELE. NO BM ON SHIFT, NO RECTAL BLEEDING ON SHIFT. HGB LEVEL STABLE. REPORT GIVEN TO MED FLOOR RM 341 NURSE. PATIENT TAKEN BY WHEELCHAIR BY AIDE TO MEDICAL FLOOR ROOM 341.
--- NOTE | 2025-05-03 13:27 | NUR ---
PT ARRIVED TO FLOOR AOX3 1307. PT COOPERATIVE OF CARE. BED ALARM PLACE AND PROVIDED SNACKS THAT WERE APPROVED. CALL LIGHT IN REACH.
[2025-05-03 15:09] VITALS: BP 118/67
--- NOTE | 2025-05-03 17:58 | NUR ---
NO ACUTE CHANGES AOX3 AND COOPERATIVE OF CARE. DOES LIKE TO FIDGET WITH THINGS AROUND HIM AND REQUEST LOST OF FOOD. WILL AT TIMES BE A BIT MESSY WITH FOOD. CALL LIGHT IN REACH WILL CONTINUE TO MONITOR.
[2025-05-03 20:56] VITALS: BP 109/71
[2025-05-04 00:48] VITALS: BP 103/65
--- NOTE | 2025-05-04 06:41 | NUR ---
ROAD CREW MEMBER SUMMARY PT A&OX3, VSS. ABLE TO COMMUNICATE NEEDS APPROPRIATELY. PT HAS BEEN ASLEEP ON AND OFF THIS SHIFT. CHEST RISE/RESPIRATIONS NOTED. ON TELE EARLIER THIS SHIFT. SR AT 81. PT IS EXTREMELY IMPULSIVE. DOES NOT CALL APPROPRIATELY FOR ASSISTANCE WHEN GETTING UP. BED ALARM ON FOR PT SAFETY. PT REFUSED TO PUT TELE BACK ON, GET AM VS, OR TAKE AM MEDICATIONS DESPITE VERABLIZING UNDERSTANDING TO EDUCATION. BED RAILS UP X 2, BED IN LOWEST POSITION, BED WHEELS LOCKED, PERSONAL BELONGINGS AND CALL LIGHT WITHIN REACH FOR SAFETY.
[2025-05-04 07:45] VITALS: BP 99/74
[2025-05-04 09:01] LABS: BASOPHILS ABSOLUTE AUTO 0.04 K/mm3 (0.00-0.23); BASOPHILS PERCENT AUTO 1 % (0-2); EOSINOPHILS ABSOLUTE AUTO 0.19 K/mm3 (0.00-0.68); EOSINOPHILS PERCENT AUTO 3 % (0-6); Hematocrit 28.1 % (37.0-53.0); Hemoglobin 9.2 g/dL (13.5-17.5); IMMATURE GRAN ABSOLUTE AUTO 0.13 K/mm3 (0.00-0.10); IMMATURE GRAN PERCENT AUTO 2 % (0-1); LYMPHOCYTES ABSOLUTE AUTO 1.72 K/mm3 (0.84-5.20); LYMPHOCYTES PERCENT AUTO 24 % (21-46); MONOCYTES ABSOLUTE AUTO 0.76 K/mm3 (0.16-1.47); MONOCYTES PERCENT AUTO 11 % (4-13); Mean Corpuscular HGB Conc 32.7 g/dL (31.5-36.5); Mean Corpuscular Volume 95 fL (80-100); NEUTROPHILS ABSOLUTE AUTO 4.38 K/mm3 (1.96-9.15); NEUTROPHILS PERCENT AUTO 61 % (41-73); NRBC ABSOLUTE 0.00 K/mm3 (0.00-0.02); NRBC Auto 0.0 /100 WBC (0.0-0.2); Platelet Count 347 K/mm3 (150-400); RDW Coefficient Variation 18.6 % (11.7-14.2); RDW Standard Deviation 57.4 fL (35.1-46.3)
[2025-05-04 09:24] LABS: Anion Gap 6.0 mmol/L (3-11); Blood Urea Nitrogen 15.0 mg/dL (8-24); CO2, Blood 30.0 mmol/L (21-32); Calcium, Blood 8.3 mg/dL (8.5-10.1); Chloride, Blood 106.0 mmol/L (98-108); Creatinine, Blood 0.6 mg/dL (0.60-1.20); Glucose, Blood 96.0 mg/dL (70-99); Potassium, Blood 4.0 mmol/L (3.5-5.5); Sodium, Blood 138.0 mmol/L (136-145)
[2025-05-04 15:54] VITALS: BP 119/67
[2025-05-04 19:42] VITALS: BP 110/73
--- NOTE | 2025-05-05 04:12 | NUR ---
HUMAN RESOURCES ADMINISTRATOR SUMMARY PT A&OX3, VSS. ABLE TO COMMUNICATE NEEDS EFFECTIVELY. PT HAS BEEN ASLEEP FOR THE GREATER HALF OF THE SHIFT. CHEST RISE/RESPIRATIONS NOTED. DR. ENG UP TO SEE PT IN THE EVENING. RECEIVED VERBAL ORDER FOR NO IV ACCESS. PT NOW USING CALL LIGHT APPROPRIATELY TO ASK FOR ASSISTANCE OR NEEDS. BED RAILS UP X 2, BED IN LOWEST POSITION, BED WHEELS LOCKED, PERSONAL BELONGINGS AND CALL LIGHT WITHIN REACH FOR SAFETY.
[2025-05-05 05:08] VITALS: BP 119/75
[2025-05-05 06:05] LABS: Hematocrit 27.3 % (37.0-53.0); Hemoglobin 8.8 g/dL (13.5-17.5)
[2025-05-05 07:33] VITALS: BP 107/71
[2025-05-05 16:14] VITALS: BP 104/66
--- NOTE | 2025-05-05 16:50 | NUR ---
SHIFT SUMMARY NO ACUTE CHANGES, A/Ox4, INDEPENDENT IN ROOM. GOOD APPETITE AND FLUID INTAKE. PT DENIES PAIN. VITALS STABLE. PT DENIES ABNORMAL OR BLOODY BM THIS SHIFT. NO IV ACCESS. PT RESTING IN BED WITH BED IN LOWEST POSITION AND CALL LIGHT IN REACH. APPEARS COMOFORTABLE AND IN NO DISTRESS.
[2025-05-05 19:28] VITALS: BP 110/67
[2025-05-06 02:54] VITALS: BP 122/66
--- NOTE | 2025-05-06 04:28 | NUR ---
SHIFT SUMMARY PATIENT IS ALERT AND ORIENTED. PATIENT HAS HAD NO ACUTE EVENTS THIS SHIFT. VITAL SIGNS REVIEWED. PATIENT HAS HAD GOOD APPETITE. PATIENT HAS HAD NO COMPLAINTS OF SOB, NAUSEA, VOMITTING OR PAIN THIS SHIFT. NO ABNORMAL BM OR URINARY OUTPUT. BED IN LOCKED AND LOWEST POSITION. CALL LIGHT IN PLACE.
[2025-05-06 07:53] VITALS: BP 120/62
--- NOTE | 2025-05-06 14:11 | NUR ---
ELVIS REMOVED FROM PATIENT'S SCALP/FOREHEAD.
--- NOTE | 2025-05-06 15:26 | NUR ---
CALLED PATIENTS GUARDIAN JOAN LALO. SHE OPTED FOR DNR AND LIMITED INTERVENTIONS. ORDER UPDATED TO DNR IN THE COMPUTER. POLST SIGNED BY PROVIDER. COPY SENT TO REGISTRY, AND MEDICAL RECORDS.
[2025-05-06 15:53] VITALS: BP 105/61
--- NOTE | 2025-05-06 18:38 | NUR ---
SHIFT SUMMARY; PT A/OX4 AND INDEPENDENT WITH CARE. PT HAS GOOD APPETITE. PT MEDICATED PER EMAR. ELVIS REMOVED FROM SCALP. PT TOLERATED WELL WHILE BOAT MECHANIC EDUCATED ON PROCEDURE. NO SWELLING OR EXUDATE SEEN AROUND SITE. BED IN LOWEST POSITION AND CALL LIGHT WITHIN REACH.
[2025-05-06 19:34] VITALS: BP 113/70
--- NOTE | 2025-05-07 04:07 | NUR ---
SHIFT SUMMARY NO ACUTE EVENTS DURING THIS SHIFT. PT IS A/O X4, ABLE TO MAKE HIS NEEDS KNOWN AND COOPERATIVE WITH CARE. AWAKE MOST OF THE NIGHT. GREAT APPETITE. PT DENIES PAIN AND DISCOMFORT. BED AT THE LOWEST POSITION, CALL LIGHT W/I REACH.
[2025-05-07 05:05] VITALS: BP 115/69
[2025-05-07 07:29] VITALS: BP 96/57
[2025-05-07 16:33] VITALS: BP 102/65
--- NOTE | 2025-05-07 18:00 | NUR ---
END OF SHIFT NOTE PATIENT RESTING IN BED. A&O4, ABLE TO MAKE NEEDS KNOWN. REQUESTING SNACKS AND DRINKS T/O THE DAY, NO OTHER NEEDS REQUESTED. IND IN ROOM AND TO BATHROOM. WAITING FOR PLACEMENT. NO OTHER CONCERNS FOR THIS SHIFT.
[2025-05-07 19:24] VITALS: BP 113/64
[2025-05-08 02:40] VITALS: BP 111/68
--- NOTE | 2025-05-08 04:15 | NUR ---
Shift Summary: AOx2-3 with notable slight confusion/forgetfulness, denies any pain/discomfort, all his VS are WNL OOB and ambulates steadily, continent of (B) B&B, no BM this shift, no reports os any rectal or any active bleed this shift, all scheduled meds taken weel, appetite & fluid intake good, no behavioral problem displayed, pt. is pleasant & in good spirits, resting comfortably.
[2025-05-08 07:32] VITALS: BP 114/72
[2025-05-08 15:09] VITALS: BP 115/74
--- NOTE | 2025-05-08 18:10 | NUR ---
END OF SHIFT NOTE PATIENT RESTING IN BED. A&O4, IND IN ROOM AND TO BATHROOM. SHOWER STARTED FOR PATIENT, ITEMS GIVEN FOR SHOWER. PATIENT DID NOT GET IN SHOWER BUT USED SINK IN BATHROOM TO WASH UP IN. AGREEABLE AND PLEASENT TODAY WITH ALL CARE. REQUESTING SNACKS AND DRINKS OFTEN. NO OTHER CONCERNS FOR THIS SHIFT.
[2025-05-08 20:11] VITALS: BP 108/63
--- NOTE | 2025-05-09 04:21 | NUR ---
SHIFT SUMMARY PATIENT IS ALERT AND ORIENTED WITH FORGETFULLNESS. PATIENT HAS HAD NO ACUTE EVENTS THIS SHIFT. VITAL SIGNS REVIEWED. PATIENT HAS BEEN IND IN ROOM. PATIENT HAS NO COMPLAINTS OF SOB, NAUSEA, PAIN OR VOMITTING. PATIENT HAS BEEN RESTING AND SNACKING ALL NIGHT. BED IN LOCKED AND LOWEST POSITION.
[2025-05-09 04:51] VITALS: BP 104/63
[2025-05-09 06:12] LABS: BASOPHILS ABSOLUTE AUTO 0.06 K/mm3 (0.00-0.23); BASOPHILS PERCENT AUTO 1 % (0-2); EOSINOPHILS ABSOLUTE AUTO 0.22 K/mm3 (0.00-0.68); EOSINOPHILS PERCENT AUTO 3 % (0-6); Hematocrit 28.1 % (37.0-53.0); Hemoglobin 9.2 g/dL (13.5-17.5); IMMATURE GRAN ABSOLUTE AUTO 0.08 K/mm3 (0.00-0.10); IMMATURE GRAN PERCENT AUTO 1 % (0-1); LYMPHOCYTES ABSOLUTE AUTO 1.66 K/mm3 (0.84-5.20); LYMPHOCYTES PERCENT AUTO 26 % (21-46); MONOCYTES ABSOLUTE AUTO 0.71 K/mm3 (0.16-1.47); MONOCYTES PERCENT AUTO 11 % (4-13); Mean Corpuscular HGB Conc 32.7 g/dL (31.5-36.5); Mean Corpuscular Volume 98 fL (80-100); NEUTROPHILS ABSOLUTE AUTO 3.70 K/mm3 (1.96-9.15); NEUTROPHILS PERCENT AUTO 58 % (41-73); NRBC ABSOLUTE 0.00 K/mm3 (0.00-0.02); NRBC Auto 0.0 /100 WBC (0.0-0.2); Platelet Count 349 K/mm3 (150-400); RDW Coefficient Variation 17.8 % (11.7-14.2); RDW Standard Deviation 64.2 fL (35.1-46.3)
[2025-05-09 06:54] LABS: Anion Gap 8.0 mmol/L (3-11); Blood Urea Nitrogen 18.0 mg/dL (8-24); CO2, Blood 28.0 mmol/L (21-32); Calcium, Blood 8.3 mg/dL (8.5-10.1); Chloride, Blood 106.0 mmol/L (98-108); Creatinine, Blood 0.6 mg/dL (0.60-1.20); Glucose, Blood 99.0 mg/dL (70-99); Potassium, Blood 3.9 mmol/L (3.5-5.5); Sodium, Blood 138.0 mmol/L (136-145)
[2025-05-09 07:26] VITALS: BP 109/70
[2025-05-09 15:48] VITALS: BP 100/70
--- NOTE | 2025-05-09 16:04 | NUR ---
SHIFT SUMMARY PT AOX4, COOPERATIVE, ABLE TO MAKE NEEDS KNOWN. PT IS IND IN ROOM, ON ROOM AIR, TOLERATING MEDICATIONS. PT HAS NOT CALLED FOR ANY NEEDS. USING RESTROOM APPROPRIATELY. AWAITING PLACEMENT/MEMORY CARE. BED IN LOWEST POSITION, CALL LIGHT WITHIN REACH.
[2025-05-09 19:59] VITALS: BP 128/77
[2025-05-10 04:31] VITALS: BP 108/59
--- NOTE | 2025-05-10 05:04 | NUR ---
SHIFT SUMMARY; PT A/OX4, INDEPENDENTLY AMBULATING TO THE RESTROOM, AND CALLS APPROPRIATELY. PT HAS GOOD APPETITE. PT MEDICATED PER EMAR. PT HAS NO COMPLAINTS THIS SHIFT. BED IN LOWEST POSITION AND CALL LIGHT WITHIN REACH.
[2025-05-10 06:57] LABS: BASOPHILS ABSOLUTE AUTO 0.06 K/mm3 (0.00-0.23); BASOPHILS PERCENT AUTO 1 % (0-2); EOSINOPHILS ABSOLUTE AUTO 0.20 K/mm3 (0.00-0.68); EOSINOPHILS PERCENT AUTO 3 % (0-6); Hematocrit 28.7 % (37.0-53.0); Hemoglobin 9.3 g/dL (13.5-17.5); IMMATURE GRAN ABSOLUTE AUTO 0.07 K/mm3 (0.00-0.10); IMMATURE GRAN PERCENT AUTO 1 % (0-1); LYMPHOCYTES ABSOLUTE AUTO 1.74 K/mm3 (0.84-5.20); LYMPHOCYTES PERCENT AUTO 27 % (21-46); MONOCYTES ABSOLUTE AUTO 0.67 K/mm3 (0.16-1.47); MONOCYTES PERCENT AUTO 11 % (4-13); Mean Corpuscular HGB Conc 32.4 g/dL (31.5-36.5); Mean Corpuscular Volume 98 fL (80-100); NEUTROPHILS ABSOLUTE AUTO 3.66 K/mm3 (1.96-9.15); NEUTROPHILS PERCENT AUTO 57 % (41-73); NRBC ABSOLUTE 0.00 K/mm3 (0.00-0.02); NRBC Auto 0.0 /100 WBC (0.0-0.2); Platelet Count 348 K/mm3 (150-400); RDW Coefficient Variation 17.5 % (11.7-14.2); RDW Standard Deviation 62.6 fL (35.1-46.3)
[2025-05-10 07:05] VITALS: BP 99/61
[2025-05-10 07:20] LABS: Anion Gap 7.0 mmol/L (3-11); Blood Urea Nitrogen 27.0 mg/dL (8-24); CO2, Blood 27.0 mmol/L (21-32); Calcium, Blood 8.4 mg/dL (8.5-10.1); Chloride, Blood 107.0 mmol/L (98-108); Creatinine, Blood 0.66 mg/dL (0.60-1.20); Glucose, Blood 108.0 mg/dL (70-99); Potassium, Blood 3.9 mmol/L (3.5-5.5); Sodium, Blood 137.0 mmol/L (136-145)
[2025-05-10 15:24] VITALS: BP 122/74
--- NOTE | 2025-05-10 16:00 | NUR ---
SHIFT SUMMARY PT AOX4, COOPERATIVE, ABLE TO MAKE NEEDS KNOWN. PT IS IND IN ROOM, ON ROOM AIR, TOLERATING MEDICATION. PT HAS BEEN RESTRICTED ON SO MANY SNACKS THIS SHIFT. NO IV ACCESS. AWAITING PLACEMENT FOR MEMORY CARE, POSSIBLY [facility]. BED IN LOWEST POSITION, CALL LIGHT WITHIN REACH.
[2025-05-10 19:34] VITALS: BP 120/71
[2025-05-11 04:28] VITALS: BP 112/69
--- NOTE | 2025-05-11 05:01 | NUR ---
HULL SORTER SUMMARY VSS. A/O X 4. COOPERATIVE WITH CARE. ADMIT DX GI BLEED, NO NOTED/REPORTED S/S BLOODY EMESIS OR STOOL. HAS BEEN RESTING QUIETLY WITH FEW INTERRUPTIONS. CALL LIGHT IN CORTES, RAILS UP X 2 AND BED IN LOW POSITION FOR SAFEATY. UP AD GET. NO NOTED DISTRESS. WILL CONTINUE TO MONITOR.
[2025-05-11 07:53] VITALS: BP 104/68
[2025-05-11 15:55] VITALS: BP 106/68
--- NOTE | 2025-05-11 17:20 | NUR ---
End of shift summary: Patient is alert and oriented x3; pleasant and cooperative with care; somewhat flat affect with conversations. Denies SOB, CP or pressure, N/V/D or pain today. All medications administered per EMAR. Patient with no acute changes this shift. Plan to discharge to [facility] as soon as authorization complete. Bed in lowest position, call light within reach. Will continue to monitor until next shift nurse arrives and report is given.
[2025-05-11 19:38] VITALS: BP 101/62
--- NOTE | 2025-05-12 05:20 | NUR ---
SHIFT SUMMARY PATIENT ADMITTED FOR RECTAL BLEEDING. PATIENT DNR.INDEPENDENT IN ROOM. NO ACUTE OVERNIGHT EVENTS. BED IN LOWEST POSITION. BED RAILS UP X2. CALL LIGHT WITHIN REACH.
--- NOTE | 2025-05-12 05:23 | NUR ---
SHIFT SUMMARY PATIENT ADMITTED THIS SHIFT FOR CELLULITIS. PATIENT HAD ONE 8 BEAT RUN OF VTACH THIS SHIFT PATIENT WAS ASYMPTOMATIC. PATIENT ALERT AND ORIENTED X4. ABLE TO MAKE NEEDS KNOWN. BED RAILS UP X2. BED IN LOWEST POSITION FOR SAFETY. CALL LIGHT WITHIN REACH.
[2025-05-12 06:19] VITALS: BP 80/54
[2025-05-12 07:50] VITALS: BP 99/71
[2025-05-12 15:40] VITALS: BP 107/72
--- NOTE | 2025-05-12 17:07 | NUR ---
End of shift summary: Patient is alert and oriented x3; flat affect, but cooperative with care. Patient with plans to discharge to [facility] in am at 0900 transport time. Denies SOB, CP or pressure, N/V/D or pain today. All medications administered per EMAR. Call light within reach, bed in lowest position. Will continue to monitor until next shift nurse arrives and report is given.
[2025-05-12 19:53] VITALS: BP 114/70
[2025-05-13 02:33] VITALS: BP 118/77
--- NOTE | 2025-05-13 06:02 | NUR ---
SHIFT SUMMARY PATIENT ADMITTED FOR RECTAL BLEEDING. ALERT AND ORIENTED X2-3. VSS. PATIENT INDEPENDENT IN ROOM. PATIENT HAS DISCHARGE ORDERS IN AND PLANNED TRANSPORT TIME OF 0900 HOURS. SEVERAL ITEMS OF SILVERWARE AND DISHES WERE FOUND IN PATIENTS BED AND EXCEPTIONAL CHILDREN'S TEACHER REPORTS THERE BEING MORE IN THE ROOM, UNKNOWN IF PURPOSELY KEEPING THEM. BED RAILS UP X2. BED IN LOWEST POSITION FOR SAFETY. CALL LIGHT WITHIN REACH.
[2025-05-13] MEDS ORDERED: QUET25 PO (07:35)
[2025-05-13 07:43] VITALS: BP 104/64
--- NOTE | 2025-05-13 10:36 | NUR ---
NOTE PT A&OX4. FORGETFULNESS NOTED. PT HAS HX OF TBI/DEPRESSION/SCHIZOPHRENIA. PT ADMITTED DUE TO RECTAL BLEEDING. PT REPORTS NO RECTAL BLEEDING THIS RN GAVE PT MORNING MEDS. PT HAS NO IV. VIDEOTAPE RECORDING ENGINEER INVOLVED WITH DISCHARGE. ORDERED DISCHARGE. PT REPORTS NO PAIN, NO CHEST PAIN, NO SOB. THIS RN CALLED [facility] TO GIVE REPORT. THIS RN WENT OVER DISCHARGE INSTRUCTIONS AND MEDS. PT WENT W HARD SCRIP, COPY IN CHART. GAVE ESCORT DISCHARGE PACKET, PT LEFT WITH PERSONAL BELONGINGS. EMT TRASNPORT PICKED UP PT VIA WHEELCHAIR.
== END 2025-05-13 10:32 | DRG 377 ==
LOC: ER 09:50 → PCU 09:51 → MEDS 04-30 16:32 → ENPENDDIS 05-12 17:10 → MEDS 05-13 10:32
PROVIDERS: Student in an Organized Health Care Education/Training Program; ADMIT Hospitalist
PROC: 30233N1 Transfusion of Nonautologous Red Blood Cells into Peripheral Vein, Percutaneous Approach (ICD-10-PCS; principal; 2025-04-29)
PROC: 3E02340 Introduction of Influenza Vaccine into Muscle, Percutaneous Approach (ICD-10-PCS; 2025-04-29)
DX: K92.1 Melena (principal); G92.8 Other toxic encephalopathy; D62 Acute posthemorrhagic anemia; R65.10 Systemic inflammatory response syndrome (SIRS) of non-infectious origin without acute organ dysfunction; I45.10 Unspecified right bundle-branch block; F10.10 Alcohol abuse, uncomplicated; F25.0 Schizoaffective disorder, bipolar type; Z66 Do not resuscitate; D72.829 Elevated white blood cell count, unspecified; F43.12 Post-traumatic stress disorder, chronic; Z87.820 Personal history of traumatic brain injury; Z87.81 Personal history of (healed) traumatic fracture; Z23 Encounter for immunization; Z86.19 Personal history of other infectious and parasitic diseases; Z87.891 Personal history of nicotine dependence; Z79.899 Other long term (current) drug therapy; Z98.890 Other specified postprocedural states; S06.5XAD Traumatic subdural hemorrhage with loss of consciousness status unknown, subsequent encounter; S06.6XAD Traumatic subarachnoid hemorrhage with loss of consciousness status unknown, subsequent encounter
CPT/HCPCS: 36415; 36416; 36430; 80048; 80053; 82607; 82728; 82746; 83540; 83550; 83690; 83735; 85014; 85018; 85025; 85610; 85730; 86592; 86850; 86900; 86901; 86923; 93005; 93010; 96374; 96375; 96376; 97129; 97161; 99284-25; A9270; G0378; J1750; J2470; J7030; J7040; J7050; P9016